=== PATIENT | female | born 1970 | race Hispanic/Latino ===

== ENCOUNTER 2017-11-14 22:11 | Inpatient (IN) | payer MEDICAID ==
[~2017-11-14] VITALS: Ht 175.3 cm; Wt 108.8 kg
[2017-11-14 22:55] LABS: HEMATOCRIT 35.4 % (36-48); MEAN CORPUSCULAR HEMOGLOBIN 28.2 pg (27.0-33.0); MEAN CORPUSCULAR HGB CONC 34.7 g/dL (32.0-36.0); MEAN CORPUSCULAR VOLUME 81.2 fL (79-99); PLATELET COUNT (AUTO) 321 K/uL (130-400); RED BLOOD CELL COUNT(AUTO) 4.36 MIL/uL (4.00-5.50); RED CELL DISTRIBUTION WIDTH 13.7 % (11.0-15.5); WHITE BLOOD COUNT (AUTO) 12.7 K/uL (4.8-10.8)
[2017-11-14 23:05] LABS: CARBON DIOXIDE 22 mmol/L (21-32); CHLORIDE 99 mmol/L (101-111); CREATININE 2.7 mg/dL (0.5-1.5); GLOMERULAR FILTR. RATE CALC 20 mL/min (>60); GLUCOSE,RANDOM 148 mg/dL (70-105); POTASSIUM 3.3 mmol/L (3.5-5.1); SODIUM SERUM 136 mmol/L (136-145); UREA NITROGEN, BLOOD 20 mg/dL (7-18)
[2017-11-14 23:08] LABS: INR 1.13 (0.85-1.15); PARTIAL THROMBOPLASTIN TIME 30.6 SEC (26.3-35.5); PROTHROMBIN TIME 11.8 SEC (9.6-11.6)
[2017-11-14 23:25] LABS: BAND NEUTROPHILS % (MANUAL) 36 % (0-2); LYMPHOCYTES % (MANUAL) 1 % (22-44); MAN.DIFF COMMENT-IMPRESSION MANUAL DIFFERENTIAL; METAMYELOCYTES % 8 % (0-0); MONOCYTES % (MANUAL) 2 % (2-9); SEGMENTED NEUTROPHILS % 53 % (40-70)
[2017-11-14 23:29] LABS: ALANINE AMINOTRANSFERASE 29 U/L (12-78); ALBUMIN 2.8 g/dL (3.5-5.0); ASPARTATE AMINOTRANSFERASE 26 U/L (10-37); BILIRUBIN,TOTAL 1.8 mg/dL (0.2-1.0); CREATINE KINASE MB < 0.5 ng/mL (0.5-3.6); CREATINE KINASE, TOTAL 33 U/L (21-232); MYOGLOBIN 146 ng/mL (10-92); TOTAL PROTEIN, SERUM 6.9 g/dL (6.0-8.3)
[2017-11-15] VITALS (25 sets, daily range): BP systolic 100–132; BP diastolic 46–78
[2017-11-15] MEDS ORDERED: LEVOFLOXACIN 750 MG/D5W 150 ML 150 ML ONE (00:03)
[2017-11-15 00:35] LABS: BILIRUBIN,URINE MODERATE (NEGATIVE); COLOR,URINE YELLOW (YELLOW); GLUCOSE, URINE (UA) 100 mg/dL (NEGATIVE); KETONES,URINE 5 mg/dL (NEGATIVE); LEUKOCYTE ESTERASE ,URINE MODERATE (NEGATIVE); NITRATE,URINE NEGATIVE (NEGATIVE); OCCULT BLOOD,URINE LARGE (NEGATIVE); PH,URINE 6.5 (5.0-8.0); PROTEIN,URINE >=300 (NEGATIVE)
[2017-11-15 00:36] LABS: APPEARANCE,URINE CLOUDY (CLEAR)
[2017-11-15 00:38] LABS: BACTERIA,URINE Moderate /HPF (None Seen); RBC,URINE None Seen /HPF (0-1); SQUAMOUS EPITHELIAL CELL,UR 0-2 /HPF (0-2); WBC,URINE Full Field /HPF (0-1)
[2017-11-15] MEDS ORDERED: SODIUM CHLORIDE 0.9% 1000ML 1,000 ML IV ONE (02:44)
[2017-11-15] MEDS ORDERED: NOREPINEPHRINE BITARTRATE 1 MG/1 ML ML IV ONE (02:44)
[2017-11-15] MEDS ORDERED: DEXTROSE 5%-WATER 500 ML IV ONE (02:45)
[2017-11-15] MEDS ORDERED: CEFTRIAXONE SODIUM 1 GM ONE (02:45)
[2017-11-15] MEDS: SODIUM CHLORIDE 0.9% 1000ML 1,000 ML IV SCH ×6 (04:00→22:43)
[2017-11-15] MEDS ORDERED: MORPHINE SULFATE 2 MG/ML 1ML SYG IVP PRN (04:00)
[2017-11-15] MEDS ORDERED: PHARMACY COMMUNICATION MISC SCH (04:00)
[2017-11-15] MEDS ORDERED: ONDANSETRON HCL 4 MG/2 ML VIAL IV PRN (06:30)
[2017-11-15] MEDS ORDERED: LIDOCAINE HCL-MPF 1% 2ML VIAL IVP PRN (06:30)
[2017-11-15] MEDS: LEVOFLOXACIN 500 MG/D5W 100 ML 100 ML IV SCH (06:30)
[2017-11-15] MEDS: FAMOTIDINE/PF 20 MG/2 ML VIAL IV SCH (08:36)
[2017-11-15] MEDS: NOREPINEPHRINE 4MG/NS 250ML 250 ML IV SCH ×2 (10:14→19:45)
[2017-11-15] MEDS ORDERED: MEROPENEM 1GM IVPB PREMIXED 1 GM IV SCH (11:30)
[2017-11-15] MEDS ORDERED: MEROPENEM 1 GM VIAL IVP SCH (11:45)
[2017-11-15] MEDS: MEROPENEM 1 GM VIAL IVP SCH (23:17)
[2017-11-16] VITALS (23 sets, daily range): BP systolic 97–135; BP diastolic 50–69
[2017-11-16] MEDS: SODIUM CHLORIDE 0.9% 1000ML 1,000 ML IV SCH ×2 (04:00→06:12)
[2017-11-16 04:09] LABS: HEMATOCRIT 31.2 % (36-48); MEAN CORPUSCULAR HEMOGLOBIN 28.6 pg (27.0-33.0); MEAN CORPUSCULAR VOLUME 81.8 fL (79-99); PLATELET COUNT (AUTO) 185 K/uL (130-400); RED BLOOD CELL COUNT(AUTO) 3.82 MIL/uL (4.00-5.50); RED CELL DISTRIBUTION WIDTH 14.1 % (11.0-15.5); WHITE BLOOD COUNT (AUTO) 11.9 K/uL (4.8-10.8)
[2017-11-16 04:28] LABS: CREATININE 1.5 mg/dL (0.5-1.5); MAGNESIUM 1.5 mg/dL (1.80-2.40); PHOSPHORUS 1.6 mg/dL (2.5-4.9); POTASSIUM 3.2 mmol/L (3.5-5.1)
[2017-11-16 04:44] LABS: BAND NEUTROPHILS % (MANUAL) 38 % (0-2); EOSINOPHILS % (MANUAL) 2 % (1-6); LYMPHOCYTES % (MANUAL) 2 % (22-44); MONOCYTES % (MANUAL) 1 % (2-9); SEGMENTED NEUTROPHILS % 57 % (40-70)
[2017-11-16 04:45] LABS: MAN.DIFF COMMENT-IMPRESSION MANUAL DIFFERENTIAL
[2017-11-16 04:47] LABS: PLATELET MORPHOLOGY COMMENT ADEQUATE
[2017-11-16] MEDS: LEVOFLOXACIN 500 MG/D5W 100 ML 100 ML IV SCH (06:13)
[2017-11-16] MEDS ORDERED: LIDOCAINE HCL 2% 20ML ONE (09:13)
[2017-11-16] MEDS ORDERED: ISOVUE-300 100 ML VIAL IV ONE (09:13)
[2017-11-16] MEDS ORDERED: SODIUM BICARB 50MEQ 50ML VIAL ONE (09:13)
[2017-11-16] MEDS: FAMOTIDINE/PF 20 MG/2 ML VIAL IV SCH (11:37)
[2017-11-16] MEDS: THIAMINE HCL 100 MG/ML 2ML VIAL IVP SCH (11:37)
[2017-11-16] MEDS: MEROPENEM 1 GM VIAL IVP SCH (11:37)
[2017-11-16] MEDS: POTASSIUM CHLORIDE 10% ELIXIR 20 MEQ/15 ML UDCUP PO PRN ×2 (11:38→14:38)
[2017-11-16] MEDS: FOLIC ACID/VITAMIN B COMP W-C 1 MG CAPSULE PO SCH (11:39)
[2017-11-16] MEDS ORDERED: POTASSIUM PHOS 15 mMOL+NS250ML 250 ML IV SCH (12:00)
[2017-11-16] MEDS: MAGNESIUM 2GM PREMIX 50ML 50 ML IV SCH (14:37)
[2017-11-16] MEDS ORDERED: PHARMACY COMMUNICATION MISC SCH (17:00)
[2017-11-16] MEDS: NEUTRA-PHOS PACKET 1 EACH PO SCH ×2 (17:00→20:34)
[2017-11-17] MEDS: MEROPENEM 1 GM VIAL IVP SCH ×3 (00:28→22:43)
[2017-11-17 03:49] VITALS: BP 97/47
[2017-11-17 03:57] LABS: HEMATOCRIT 29.7 % (36-48); MEAN CORPUSCULAR HEMOGLOBIN 27.6 pg (27.0-33.0); MEAN CORPUSCULAR HGB CONC 34.5 g/dL (32.0-36.0); MEAN CORPUSCULAR VOLUME 79.9 fL (79-99); PLATELET COUNT (AUTO) 186 K/uL (130-400); RED BLOOD CELL COUNT(AUTO) 3.72 MIL/uL (4.00-5.50); RED CELL DISTRIBUTION WIDTH 14.5 % (11.0-15.5); WHITE BLOOD COUNT (AUTO) 7.7 K/uL (4.8-10.8)
[2017-11-17 04:11] LABS: CREATININE 1.2 mg/dL (0.5-1.5); MAGNESIUM 1.9 mg/dL (1.80-2.40); PHOSPHORUS 2.2 mg/dL (2.5-4.9); POTASSIUM 3.3 mmol/L (3.5-5.1)
[2017-11-17] MEDS: MAGNESIUM 2GM PREMIX 50ML 50 ML IV SCH (04:50)
[2017-11-17] MEDS: POTASSIUM CHLORIDE 10% ELIXIR 20 MEQ/15 ML UDCUP PO PRN (04:52)
[2017-11-17] MEDS: LEVOFLOXACIN 500 MG/D5W 100 ML 100 ML IV SCH (06:27)
[2017-11-17 07:41] VITALS: BP 92/54
[2017-11-17] MEDS: FOLIC ACID/VITAMIN B COMP W-C 1 MG CAPSULE PO SCH (07:56)
[2017-11-17] MEDS: NEUTRA-PHOS PACKET 1 EACH PO SCH ×4 (07:56→20:54)
[2017-11-17] MEDS: THIAMINE HCL 100 MG/ML 2ML VIAL IVP SCH (07:57)
[2017-11-17] MEDS: FAMOTIDINE/PF 20 MG/2 ML VIAL IV SCH (07:57)
[2017-11-17 11:15] VITALS: BP 108/68
[2017-11-17 15:47] VITALS: BP 106/68
[2017-11-17 19:51] VITALS: BP 118/69
[2017-11-18] VITALS (7 sets, daily range): BP systolic 102–118; BP diastolic 58–71
[2017-11-18 04:02] LABS: HEMATOCRIT 30.3 % (36-48); MEAN CORPUSCULAR HEMOGLOBIN 29.1 pg (27.0-33.0); MEAN CORPUSCULAR HGB CONC 36.2 g/dL (32.0-36.0); MEAN CORPUSCULAR VOLUME 80.4 fL (79-99); PLATELET COUNT (AUTO) 210 K/uL (130-400); RED BLOOD CELL COUNT(AUTO) 3.78 MIL/uL (4.00-5.50); RED CELL DISTRIBUTION WIDTH 14.7 % (11.0-15.5); WHITE BLOOD COUNT (AUTO) 8.1 K/uL (4.8-10.8)
[2017-11-18 04:16] LABS: CREATININE 1.2 mg/dL (0.5-1.5); POTASSIUM 3.8 mmol/L (3.5-5.1)
[2017-11-18] MEDS: FAMOTIDINE/PF 20 MG/2 ML VIAL IV SCH (09:07)
[2017-11-18] MEDS: FOLIC ACID/VITAMIN B COMP W-C 1 MG CAPSULE PO SCH (09:08)
[2017-11-18] MEDS: THIAMINE HCL 100 MG/ML 2ML VIAL IVP SCH (09:08)
[2017-11-18] MEDS: NEUTRA-PHOS PACKET 1 EACH PO SCH ×4 (09:21→21:51)
[2017-11-18] MEDS: MEROPENEM 1 GM VIAL IVP SCH ×2 (12:16→21:50)
[2017-11-19 03:50] VITALS: BP 113/65
[2017-11-19 03:54] LABS: MEAN CORPUSCULAR HEMOGLOBIN 27.8 pg (27.0-33.0); MEAN CORPUSCULAR HGB CONC 34.7 g/dL (32.0-36.0); PLATELET COUNT (AUTO) 217 K/uL (130-400); RED BLOOD CELL COUNT(AUTO) 3.88 MIL/uL (4.00-5.50); RED CELL DISTRIBUTION WIDTH 14.9 % (11.0-15.5); WHITE BLOOD COUNT (AUTO) 10.7 K/uL (4.8-10.8)
[2017-11-19 04:08] LABS: POTASSIUM 4.5 mmol/L (3.5-5.1)
[2017-11-19 07:00] VITALS: BP 121/71
[2017-11-19] MEDS: FAMOTIDINE/PF 20 MG/2 ML VIAL IV SCH (09:59)
[2017-11-19] MEDS: FOLIC ACID/VITAMIN B COMP W-C 1 MG CAPSULE PO SCH (09:59)
[2017-11-19] MEDS: MEROPENEM 1 GM VIAL IVP SCH (09:59)
[2017-11-19] MEDS: THIAMINE HCL 100 MG/ML 2ML VIAL IVP SCH (09:59)
[2017-11-19] MEDS: NEUTRA-PHOS PACKET 1 EACH PO SCH ×3 (10:13→17:13)
[2017-11-19 11:00] VITALS: BP 116/71
[2017-11-19] MEDS ORDERED: SODIUM BICARB 50MEQ 50ML VIAL ONE (14:59)
[2017-11-19] MEDS ORDERED: ISOVUE-300 100 ML VIAL IV ONE (14:59)
[2017-11-19] MEDS ORDERED: LIDOCAINE HCL 2% 20ML ONE (14:59)
[2017-11-19] MEDS ORDERED: FENTANYL CITRATE PF 50 MCG/1 ML 2ML VIAL ONE (15:18)
[2017-11-19] MEDS ORDERED: MIDAZOLAM HCL 1 MG/ML 2ML VIAL ONE (15:22)
[2017-11-19 16:12] VITALS: BP 117/73
[2017-11-19 19:30] VITALS: BP 109/60
== END 2017-11-19 19:30 | disposition home or self-care (01) | DRG 720 ==
LOC: EDH 22:11 → EDHIP 22:12 → OBSVTOIN 22:12 → 2BH 11-15 07:21 → 2AH 11-17 05:21
PROVIDERS: ADMIT Family Medicine; ATTEND Family Medicine
PROC: 0T9030Z Drainage of Right Kidney with Drainage Device, Percutaneous Approach (ICD-10-PCS; 2017-11-16)
PROC: 0T9030Z Drainage of Right Kidney with Drainage Device, Percutaneous Approach (ICD-10-PCS; principal; 2017-11-19)
DX: A41.9 Sepsis, unspecified organism (principal); R65.21 Severe sepsis with septic shock; N17.9 Acute kidney failure, unspecified; N39.0 Urinary tract infection, site not specified; E83.42 Hypomagnesemia; N13.30 Unspecified hydronephrosis; C56.9 Malignant neoplasm of unspecified ovary; B96.20 Unspecified Escherichia coli [E. coli] as the cause of diseases classified elsewhere; D64.9 Anemia, unspecified; N82.0 Vesicovaginal fistula; N21.0 Calculus in bladder; N39.498 Other specified urinary incontinence; Y84.2 Radiological procedure and radiotherapy as the cause of abnormal reaction of the patient, or of later complication, without mention of misadventure at the time of the procedure; B96.89 Other specified bacterial agents as the cause of diseases classified elsewhere; E66.9 Obesity, unspecified; I12.9 Hypertensive chronic kidney disease with stage 1 through stage 4 chronic kidney disease, or unspecified chronic kidney disease; Z16.24 Resistance to multiple antibiotics; N18.9 Chronic kidney disease, unspecified; Z93.6 Other artificial openings of urinary tract status; Z85.41 Personal history of malignant neoplasm of cervix uteri; Z85.43 Personal history of malignant neoplasm of ovary; Z90.5 Acquired absence of kidney; Z90.710 Acquired absence of both cervix and uterus; Z90.721 Acquired absence of ovaries, unilateral; Z91.19 Patient's noncompliance with other medical treatment and regimen; Z92.21 Personal history of antineoplastic chemotherapy; Z92.3 Personal history of irradiation; Z68.35 Body mass index [BMI] 35.0-35.9, adult; Z88.0 Allergy status to penicillin; Z88.8 Allergy status to other drugs, medicaments and biological substances; T83.022A Displacement of nephrostomy catheter, initial encounter
CPT/HCPCS: 10030; 36415; 50432; 70450; 71045; 74176; 76705; 76770; 80048; 80053; 81001; 82550; 82553; 83605; 83735; 83874; 84100; 84484; 85025; 85027; 85610; 85730; 86304; 87040; 87088; 87186; 93005; 99156; 99157; 99291; 99292; A4218; A4344; A4357; C1729; C1894; G0378; J0696; J1644; J1956; J2185; J2250; J3010; J3411; J3475; J3490; J7030; J7060; Q9967

== ENCOUNTER 2019-04-10 10:52 | Emergency (ER) | payer MEDICAID | END 2019-04-10 12:13 | disposition home or self-care (01) | LOC: EDH 10:52 | DX: B37.3 Candidiasis of vulva and vagina (principal); Z85.42 Personal history of malignant neoplasm of other parts of uterus; Z90.710 Acquired absence of both cervix and uterus; Z90.5 Acquired absence of kidney; Z88.0 Allergy status to penicillin; Z91.013 Allergy to seafood; Z88.8 Allergy status to other drugs, medicaments and biological substances | CPT/HCPCS: 99281 ==

== ENCOUNTER 2019-05-16 10:29 | Emergency (ER) | payer MEDICAID ==
[2019-05-16] MEDS ORDERED: METRONIDAZOLE 500 MG TABLET ONE (12:13)
[2019-05-16 12:22] LABS: BASOPHILS % (AUTO) 0.5 % (0.0-5.0); EOSINOPHILS % (AUTO) 0.4 % (0.0-8.0); HEMATOCRIT 37.1 % (36-48); LYMPHOCYTES % (AUTO) 8.1 % (21.0-51.0); MEAN CORPUSCULAR HEMOGLOBIN 27.6 pg (27.0-33.0); MEAN CORPUSCULAR HGB CONC 33.9 g/dL (32.0-36.0); MEAN CORPUSCULAR VOLUME 81.6 fL (79-99); MONOCYTES % (AUTO) 5.9 % (3.0-13.0); NEUTROPHILS % (AUTO) 85.1 % (40.0-77.0); PLATELET COUNT (AUTO) 305 K/uL (130-400); RED BLOOD CELL COUNT(AUTO) 4.55 MIL/uL (4.00-5.50); RED CELL DISTRIBUTION WIDTH 13.7 % (11.0-15.5); WHITE BLOOD COUNT (AUTO) 9.1 K/uL (4.8-10.8)
[2019-05-16 12:26] LABS: APPEARANCE,URINE TURBID (CLEAR); BILIRUBIN,URINE SMALL (NEGATIVE); COLOR,URINE YELLOW (YELLOW); GLUCOSE, URINE (UA) NEGATIVE (NEGATIVE); KETONES,URINE 5 mg/dL (NEGATIVE); LEUKOCYTE ESTERASE ,URINE MODERATE (NEGATIVE); NITRATE,URINE NEGATIVE (NEGATIVE); OCCULT BLOOD,URINE MODERATE (NEGATIVE); PH,URINE >=9.0 (5.0-8.0); PROTEIN,URINE >=300 mg/dL (NEGATIVE); UROBILINOGEN,URINE 0.2 mg/dL (0.2-1.0)
[2019-05-16 12:38] LABS: POTASSIUM 4.2 mmol/L (3.5-5.1)
[2019-05-16 12:42] LABS: ALBUMIN 3.5 g/dL (3.5-5.0); BILIRUBIN,TOTAL 1.2 mg/dL (0.2-1.0)
[2019-05-16 12:56] LABS: BACTERIA,URINE Moderate /HPF (None Seen); SQUAMOUS EPITHELIAL CELL,UR Rare /HPF (0-2); WBC,URINE 0-1 /HPF (0-1)
[2019-05-16 13:01] LABS: TRIPLE PHOSPHATE CRYSTAL,UR Few /LPF (None Seen)
== END 2019-05-16 12:49 | disposition home or self-care (01) ==
LOC: EDH 10:29
DX: B37.3 Candidiasis of vulva and vagina (principal); Z90.710 Acquired absence of both cervix and uterus; Z88.0 Allergy status to penicillin; Z91.013 Allergy to seafood; Z88.8 Allergy status to other drugs, medicaments and biological substances
CPT/HCPCS: 36415; 80053; 81001; 85025